=== PATIENT | female | born 2000 | race Caucasian/White ===

== ENCOUNTER → 2018-08-15 | Outpatient (CLI) | payer BC ==
[~2018-08-15] MED LIST: IBUP400 PO
[2018-08-18 07:13] LABS: CHLAMYDIA TRACHOMATIS, NAA Negative (Negative); NEISSERIA GONORRHOEAE, NAA Negative (Negative)
== END | disposition home or self-care (01) ==
LOC: LAB SHORT 19:19 → LAB 19:19
PROVIDERS: Nurse Practitioner Women's Health
DX: Z11.3 Encounter for screening for infections with a predominantly sexual mode of transmission (principal)
CPT/HCPCS: 87491; 87591

== ENCOUNTER 2019-11-12 22:48 | Emergency (ER) | payer OTHER, BC ==
[~2019-11-12] VITALS: Ht 162.6 cm; Wt 68.0 kg
[2019-11-13 00:20] LABS: BASOPHILS ABSOLUTE AUTO 0.07 K/mm3 (0.00-0.23); BASOPHILS PERCENT AUTO 1 % (0-2); EOSINOPHILS ABSOLUTE AUTO 0.05 K/mm3 (0.00-0.68); EOSINOPHILS PERCENT AUTO 1 % (0-6); Hematocrit 43.7 % (33.0-51.0); Hemoglobin 14.6 g/dL (11.5-16.0); IMMATURE GRAN ABSOLUTE AUTO 0.02 K/mm3 (0.00-0.10); IMMATURE GRAN PERCENT AUTO 0 % (0-1); LYMPHOCYTES ABSOLUTE AUTO 2.15 K/mm3 (0.84-5.20); LYMPHOCYTES PERCENT AUTO 31 % (21-46); MONOCYTES ABSOLUTE AUTO 0.64 K/mm3 (0.16-1.47); MONOCYTES PERCENT AUTO 9 % (4-13); Mean Corpuscular HGB 30.5 pg (26.0-34.0); Mean Corpuscular HGB Conc 33.4 g/dL (31.5-36.5); Mean Corpuscular Volume 91 fL (80-100); Mean Platelet Volume 10.3 fL (9.1-12.4); NEUTROPHILS ABSOLUTE AUTO 4.11 K/mm3 (1.96-9.15); NEUTROPHILS PERCENT AUTO 58 % (41-73); Platelet Count 269 K/mm3 (150-400); RDW Coefficient Variation 12.7 % (11.7-14.2); Red Blood Cell Count 4.78 M/mm3 (3.80-5.20); White Blood Cell Count 7.04 K/mm3 (4.00-11.30)
[2019-11-13 00:37] LABS: Alanine Aminotransfer (ALT/SGP 23 U/L (12-78); Albumin, Blood 4.4 g/dL (3.4-5.0); Albumin/Globulin Ratio 1.1 (0.8-1.8); Alk Phos 91 U/L (50-136); Anion Gap 7 mmol/L (6-16); Aspartate Aminotrans (AST/SGOT 21 U/L (12-37); Bilirubin, Total 0.3 mg/dL (0.1-1.0); Blood Urea Nitrogen 7 mg/dL (8-24); Bun/Creatinine Ratio 11.9 (12.0-20.0); CO2, Blood 25 mmol/L (21-32); Chloride, Blood 107 mmol/L (98-108); Creatinine, Blood 0.59 mg/dL (0.40-1.00); Globulin, Blood 3.9 g/dL (2.2-4.0); Glomerular Filtration Rate >60 (60-); Glucose, Blood 89 mg/dL (70-99); Sodium, Blood 139 mmol/L (136-145); Total Protein, Blood 8.3 g/dL (6.4-8.2)
== END 2019-11-13 01:55 | disposition home or self-care (01) ==
LOC: ER 22:48
PROVIDERS: Emergency Medicine
DX: S40.011A Contusion of right shoulder, initial encounter (principal); S20.211A Contusion of right front wall of thorax, initial encounter; F17.210 Nicotine dependence, cigarettes, uncomplicated; V89.2XXA Person injured in unspecified motor-vehicle accident, traffic, initial encounter
CPT/HCPCS: 36415; 70450; 71260; 72125; 74177; 80053; 83690; 84703; 85025; 96361; 96374; 96375; 99284-25; J2405; J3010; J7030; Q9967

== ENCOUNTER → 2020-03-21 | Outpatient (CLI) | payer BC | END | disposition home or self-care (01) | LOC: LAB EV 15:29 → LAB SHORT 15:29 | DX: N39.0 Urinary tract infection, site not specified (principal); Z72.51 High risk heterosexual behavior | CPT/HCPCS: 87077; 87086; 87186 ==

== ENCOUNTER 2022-03-20 17:41 | Observation (INO) | payer BC ==
[~2022-03-20] VITALS: Ht 162.6 cm; Wt 69.9 kg
[2022-03-20 18:50] LABS: BASOPHILS ABSOLUTE AUTO 0.07 K/mm3 (0.00-0.23); BASOPHILS PERCENT AUTO 1 % (0-2); EOSINOPHILS ABSOLUTE AUTO 0.02 K/mm3 (0.00-0.68); EOSINOPHILS PERCENT AUTO 0 % (0-6); Hematocrit 40.4 % (33.0-51.0); IMMATURE GRAN ABSOLUTE AUTO 0.02 K/mm3 (0.00-0.10); IMMATURE GRAN PERCENT AUTO 0 % (0-1); LYMPHOCYTES ABSOLUTE AUTO 1.65 K/mm3 (0.84-5.20); LYMPHOCYTES PERCENT AUTO 24 % (21-46); MONOCYTES ABSOLUTE AUTO 0.63 K/mm3 (0.16-1.47); MONOCYTES PERCENT AUTO 9 % (4-13); Mean Corpuscular HGB 29.5 pg (26.0-34.0); Mean Corpuscular HGB Conc 34.7 g/dL (31.5-36.5); Mean Corpuscular Volume 85 fL (80-100); Mean Platelet Volume 10.3 fL (9.1-12.4); NEUTROPHILS ABSOLUTE AUTO 4.64 K/mm3 (1.96-9.15); NEUTROPHILS PERCENT AUTO 66 % (41-73); Platelet Count 270 K/mm3 (150-400); RDW Standard Deviation 37.1 fL (35.1-46.3); Red Blood Cell Count 4.74 M/mm3 (3.80-5.20); White Blood Cell Count 7.03 K/mm3 (4.00-11.30)
[2022-03-20 19:09] LABS: Ethanol (Alcohol), Blood, Med <3 mg/dL; Salicylate <1.7 mg/dL (2.8-20.0); Thyroxine (T4) 13.2 ug/dL (4.8-13.9)
[2022-03-20 19:13] LABS: Acetaminophen, Random <2.0 ug/mL (10.0-30.0); Alanine Aminotransfer (ALT/SGP 20 U/L (12-78); Albumin, Blood 4.8 g/dL (3.4-5.0); Albumin/Globulin Ratio 1.4 (0.8-1.8); Alk Phos 82 U/L (50-136); Anion Gap 8 mmol/L (6-16); Aspartate Aminotrans (AST/SGOT 15 U/L (12-37); Bilirubin, Total 0.3 mg/dL (0.1-1.0); Blood Urea Nitrogen 8 mg/dL (8-24); Bun/Creatinine Ratio 16.5 (12.0-20.0); CO2, Blood 23 mmol/L (21-32); Calcium, Blood 9.8 mg/dL (8.5-10.1); Chloride, Blood 107 mmol/L (98-108); Creatinine, Blood 0.49 mg/dL (0.40-1.00); Globulin, Blood 3.4 g/dL (2.2-4.0); Glomerular Filtration Rate 136 (60-); Glucose, Blood 117 mg/dL (70-99); Potassium, Blood 3.7 mmol/L (3.5-5.5); Sodium, Blood 138 mmol/L (136-145); Total Protein, Blood 8.2 g/dL (6.4-8.2)
[2022-03-20] MEDS ORDERED: HYDHCL25 PO (21:16)
== END 2022-03-20 21:33 | disposition home or self-care (01) ==
LOC: ER 17:41 → EOR 17:42
PROVIDERS: Physician Assistant; ADMIT Emergency Medicine
DX: F41.9 Anxiety disorder, unspecified (principal); F17.200 Nicotine dependence, unspecified, uncomplicated
CPT/HCPCS: 36415; 80053; 84436; 85025; A9270; G0480

== ENCOUNTER → 2022-06-14 | Outpatient (CLI) | payer BC ==
[~2022-06-14] MED LIST changes: +HYDHCL25 PO
[2022-06-16 01:09] LABS: CHLAMYDIA TRACHOMATIS, NAA Negative (Negative)
== END | disposition home or self-care (01) ==
LOC: LAB SHORT 11:45 → LAB 11:45
PROVIDERS: Family Medicine
DX: Z34.91 Encounter for supervision of normal pregnancy, unspecified, first trimester (principal)
CPT/HCPCS: 87491; 87591

== ENCOUNTER → 2022-07-19 | Outpatient (CLI) | payer BC, OTHER | LOC: LAB SHORT 12:42 | PROVIDERS: Family Medicine | DX: Z34.91 Encounter for supervision of normal pregnancy, unspecified, first trimester (principal) | CPT/HCPCS: G0145 ==

== ENCOUNTER → 2022-08-10 | Outpatient (CLI) | payer BC, OTHER ==
[2022-08-10 12:19] LABS: Source, Urine Voided
[2022-08-10 13:43] LABS: White Blood Cells, Urine 0-2 /hpf (0-5)
[2022-08-10 13:44] LABS: Bacteria Mod /hpf; Red Blood Cells, Urine Not Seen /hpf (0-2); Squamous Epithelial Cells Few /hpf (Few)
== END | disposition home or self-care (01) ==
LOC: LAB SHORT 09:45 → LAB 09:45
PROVIDERS: Family Medicine
DX: R82.998 Other abnormal findings in urine (principal)
CPT/HCPCS: 81015

== ENCOUNTER → 2022-10-04 | Outpatient (CLI) | payer BC, OTHER ==
[2022-10-04 14:19] LABS: BASOPHILS ABSOLUTE AUTO 0.05 K/mm3 (0.00-0.23); BASOPHILS PERCENT AUTO 1 % (0-2); EOSINOPHILS ABSOLUTE AUTO 0.12 K/mm3 (0.00-0.68); EOSINOPHILS PERCENT AUTO 2 % (0-6); Hematocrit 36.3 % (33.0-51.0); Hemoglobin 12.5 g/dL (11.5-16.0); IMMATURE GRAN ABSOLUTE AUTO 0.04 K/mm3 (0.00-0.10); IMMATURE GRAN PERCENT AUTO 1 % (0-1); LYMPHOCYTES ABSOLUTE AUTO 0.94 K/mm3 (0.84-5.20); LYMPHOCYTES PERCENT AUTO 18 % (21-46); MONOCYTES ABSOLUTE AUTO 0.32 K/mm3 (0.16-1.47); MONOCYTES PERCENT AUTO 6 % (4-13); Mean Corpuscular HGB 30.9 pg (26.0-34.0); Mean Corpuscular HGB Conc 34.4 g/dL (31.5-36.5); Mean Corpuscular Volume 90 fL (80-100); Mean Platelet Volume 11.1 fL (9.1-12.4); NEUTROPHILS ABSOLUTE AUTO 3.84 K/mm3 (1.96-9.15); NEUTROPHILS PERCENT AUTO 72 % (41-73); Platelet Count 195 K/mm3 (150-400); RDW Coefficient Variation 12.8 % (11.7-14.2); RDW Standard Deviation 41.9 fL (35.1-46.3); Red Blood Cell Count 4.05 M/mm3 (3.80-5.20); White Blood Cell Count 5.31 K/mm3 (4.00-11.30)
== END | disposition home or self-care (01) ==
LOC: LAB 11:29 → LAB SHORT 11:29
PROVIDERS: Family Medicine
DX: Z34.03 Encounter for supervision of normal first pregnancy, third trimester (principal)
CPT/HCPCS: 82950; 85025

== ENCOUNTER → 2022-11-29 | Outpatient (CLI) | payer BC, OTHER | END | disposition home or self-care (01) | LOC: LAB SHORT 12:32 → LAB 12:32 | DX: Z34.03 Encounter for supervision of normal first pregnancy, third trimester (principal) | CPT/HCPCS: 87081; 87150 ==

== ENCOUNTER 2022-12-30 06:12 | Inpatient (IN) | payer BC, OTHER ==
[2022-12-30] VITALS (32 sets, daily range): BP systolic 109–152; BP diastolic 57–90
[~2022-12-30] VITALS: Ht 162.6 cm; Wt 80.0 kg
[2022-12-30 07:00] LABS: BASOPHILS ABSOLUTE AUTO 0.06 K/mm3 (0.00-0.23); BASOPHILS PERCENT AUTO 1 % (0-2); EOSINOPHILS ABSOLUTE AUTO 0.05 K/mm3 (0.00-0.68); EOSINOPHILS PERCENT AUTO 1 % (0-6); Hematocrit 38.9 % (33.0-51.0); IMMATURE GRAN ABSOLUTE AUTO 0.05 K/mm3 (0.00-0.10); IMMATURE GRAN PERCENT AUTO 1 % (0-1); LYMPHOCYTES ABSOLUTE AUTO 1.23 K/mm3 (0.84-5.20); LYMPHOCYTES PERCENT AUTO 15 % (21-46); MONOCYTES ABSOLUTE AUTO 0.58 K/mm3 (0.16-1.47); MONOCYTES PERCENT AUTO 7 % (4-13); Mean Corpuscular HGB 30.9 pg (26.0-34.0); Mean Corpuscular Volume 86 fL (80-100); Mean Platelet Volume 11.7 fL (9.1-12.4); NEUTROPHILS PERCENT AUTO 76 % (41-73); Platelet Count 168 K/mm3 (150-400); RDW Coefficient Variation 12.3 % (11.7-14.2); RDW Standard Deviation 38.4 fL (35.1-46.3); Red Blood Cell Count 4.53 M/mm3 (3.80-5.20); White Blood Cell Count 8.27 K/mm3 (4.00-11.30)
[2022-12-30] MEDS ORDERED: PRENATAL TABLE1 EAC2 (07:19)
[2022-12-31 00:04] VITALS: BP 110/55
[2022-12-31 04:50] VITALS: BP 103/59
[2022-12-31 05:47] LABS: Hematocrit 32.9 % (33.0-51.0); Hemoglobin 11.7 g/dL (11.5-16.0); Mean Corpuscular HGB 31.2 pg (26.0-34.0); Mean Corpuscular HGB Conc 35.6 g/dL (31.5-36.5); Mean Corpuscular Volume 88 fL (80-100); Mean Platelet Volume 11.5 fL (9.1-12.4); Platelet Count 141 K/mm3 (150-400); RDW Coefficient Variation 12.3 % (11.7-14.2); RDW Standard Deviation 39.7 fL (35.1-46.3); Red Blood Cell Count 3.75 M/mm3 (3.80-5.20); White Blood Cell Count 10.88 K/mm3 (4.00-11.30)
[2022-12-31 10:00] VITALS: BP 127/69
[2022-12-31 15:27] VITALS: BP 166/87
[2022-12-31 15:28] VITALS: BP 148/78
[2022-12-31 19:34] VITALS: BP 116/60
== END 2022-12-31 23:40 | disposition home or self-care (01) | DRG 807 ==
LOC: OBS 06:12 → BC 06:23 → OBS 06:42 → BC 06:44
PROVIDERS: Student in an Organized Health Care Education/Training Program; ADMIT Registered Nurse Community Health
PROC: 00HU33Z Insertion of Infusion Device into Spinal Canal, Percutaneous Approach (ICD-10-PCS; principal; 2022-12-30)
PROC: 3E0R3BZ Introduction of Anesthetic Agent into Spinal Canal, Percutaneous Approach (ICD-10-PCS; 2022-12-30)
PROC: 10E0XZZ Delivery of Products of Conception, External Approach (ICD-10-PCS; 2022-12-31)
PROC: 10907ZC Drainage of Amniotic Fluid, Therapeutic from Products of Conception, Via Natural or Artificial Opening (ICD-10-PCS; 2022-12-31)
PROC: 0HQ9XZZ Repair Perineum Skin, External Approach (ICD-10-PCS; 2022-12-31)
DX: O48.0 Post-term pregnancy (principal); Z37.0 Single live birth; Z67.40 Type O blood, Rh positive; Z3A.40 40 weeks gestation of pregnancy; Z79.899 Other long term (current) drug therapy; O70.0 First degree perineal laceration during delivery
CPT/HCPCS: 36415; 51702; 85025; 85027; 86850; 86900; 86901; A9270; J1885; J2590; J3010; J7120

== ENCOUNTER → 2024-06-26 | Outpatient (CLI) | payer BC, OTHER ==
[~2024-06-26] MED LIST changes: +PRENATAL TABLE1 EAC2
[2024-06-26 19:27] LABS: BASOPHILS ABSOLUTE AUTO 0.04 K/mm3 (0.00-0.23); BASOPHILS PERCENT AUTO 1 % (0-2); EOSINOPHILS ABSOLUTE AUTO 0.13 K/mm3 (0.00-0.68); EOSINOPHILS PERCENT AUTO 2 % (0-6); Hematocrit 36.4 % (33.0-51.0); Hemoglobin 12.9 g/dL (11.5-16.0); IMMATURE GRAN ABSOLUTE AUTO 0.02 K/mm3 (0.00-0.10); IMMATURE GRAN PERCENT AUTO 0 % (0-1); LYMPHOCYTES PERCENT AUTO 21 % (21-46); MONOCYTES ABSOLUTE AUTO 0.39 K/mm3 (0.16-1.47); MONOCYTES PERCENT AUTO 6 % (4-13); Mean Corpuscular HGB 30.8 pg (26.0-34.0); Mean Corpuscular HGB Conc 35.4 g/dL (31.5-36.5); Mean Corpuscular Volume 87 fL (80-100); Mean Platelet Volume 10.5 fL (9.1-12.4); NEUTROPHILS ABSOLUTE AUTO 4.56 K/mm3 (1.96-9.15); NEUTROPHILS PERCENT AUTO 70 % (41-73); Platelet Count 231 K/mm3 (150-400); RDW Coefficient Variation 12.3 % (11.7-14.2); RDW Standard Deviation 39.1 fL (35.1-46.3); Red Blood Cell Count 4.19 M/mm3 (3.80-5.20); White Blood Cell Count 6.54 K/mm3 (4.00-11.30)
[2024-06-29 09:36] LABS: HEPATITIS B SURFACE ANTIGEN Negative (Negative)
[2024-06-29 10:32] LABS: HIV 1,2 COMBO ANTIGEN/ANTIBODY Negative (Negative)
[2024-06-29 11:43] LABS: HEPATITIS C AB CIA INTERP Negative (Negative); HEPATITIS C ANTIBODY CIA INDEX 0.08 IV
== END | disposition home or self-care (01) ==
LOC: LAB SHORT 18:47 → LAB 18:47
PROVIDERS: Registered Nurse Community Health
DX: Z34.91 Encounter for supervision of normal pregnancy, unspecified, first trimester (principal)
CPT/HCPCS: 84443; 86803; 87340; 87389

== ENCOUNTER → 2024-06-28 | Outpatient (CLI) | payer BC, OTHER ==
[2024-06-28 18:43] LABS: Chlamydia Trachomatis Urine NOT DETECTED (NOT DETECT); Neisseria Gonorrhoea Urine NOT DETECTED (NOT DETECT)
== END ==
LOC: LAB 14:01 → LAB SHORT 14:01
PROVIDERS: Registered Nurse Community Health
DX: Z34.92 Encounter for supervision of normal pregnancy, unspecified, second trimester (principal)
CPT/HCPCS: 87086; 87491; 87591

== ENCOUNTER 2024-07-20 10:35 | Emergency (ER) | payer BC, OTHER ==
[~2024-07-20] VITALS: Ht 160 cm; Wt 77.1 kg
[2024-07-20 10:51] VITALS: BP 121/81
[2024-07-20 11:25] LABS: Source, Urine Clean Catch
[2024-07-20 11:28] LABS: Appearance, Urine Turbid (Clear); Bilirubin, Urine Neg (Neg); Blood, Urine 2+ (Neg); Color, Urine Yellow (P-Yellow); Glucose Qualitative, Urine Neg (Neg); Ketones, Urine 4+ (Neg); Leukocyte Esterase, Urine Neg (Neg); Nitrite, Urine Neg (Neg); Protein, Urine 1+ (Neg); Urobilinogen, Urine NORM (Normal)
[2024-07-20 11:43] LABS: Amorphous Mod (0-Heavy); Squamous Epithelial Cells Few /hpf (Few)
[2024-07-20 11:44] LABS: Bacteria Rare /hpf; White Blood Cells, Urine 0-2 /hpf (0-5)
[2024-07-20] MEDS ORDERED: Ondansetron HCl 2 MG / ML 2ML Vial IV ONE (12:10)
[2024-07-20 12:18] LABS: BASOPHILS ABSOLUTE AUTO 0.04 K/mm3 (0.00-0.23); BASOPHILS PERCENT AUTO 1 % (0-2); EOSINOPHILS ABSOLUTE AUTO 0.03 K/mm3 (0.00-0.68); EOSINOPHILS PERCENT AUTO 0 % (0-6); Hematocrit 35.5 % (33.0-51.0); Hemoglobin 12.8 g/dL (11.5-16.0); IMMATURE GRAN ABSOLUTE AUTO 0.06 K/mm3 (0.00-0.10); IMMATURE GRAN PERCENT AUTO 1 % (0-1); LYMPHOCYTES ABSOLUTE AUTO 0.82 K/mm3 (0.84-5.20); LYMPHOCYTES PERCENT AUTO 9 % (21-46); MONOCYTES ABSOLUTE AUTO 0.32 K/mm3 (0.16-1.47); MONOCYTES PERCENT AUTO 4 % (4-13); Mean Corpuscular HGB 31.4 pg (26.0-34.0); Mean Corpuscular HGB Conc 36.1 g/dL (31.5-36.5); Mean Corpuscular Volume 87 fL (80-100); NEUTROPHILS ABSOLUTE AUTO 7.43 K/mm3 (1.96-9.15); NEUTROPHILS PERCENT AUTO 85 % (41-73); Platelet Count 221 K/mm3 (150-400); RDW Coefficient Variation 12.4 % (11.7-14.2); RDW Standard Deviation 39.2 fL (35.1-46.3); Red Blood Cell Count 4.07 M/mm3 (3.80-5.20)
[2024-07-20 14:01] LABS: Albumin, Blood 3.6 g/dL (3.4-5.0); Bilirubin, Total 0.4 mg/dL (0.1-1.0); Bun/Creatinine Ratio 18.4 (12.0-20.0); Calcium, Blood 9.2 mg/dL (8.5-10.1); Creatinine, Blood 0.54 mg/dL (0.40-1.00); Globulin, Blood 3.7 g/dL (2.2-4.0); Potassium, Blood 3.7 mmol/L (3.5-5.5); Total Protein, Blood 7.3 g/dL (6.4-8.2)
== END 2024-07-20 15:35 | disposition home or self-care (01) ==
LOC: ER 10:35
PROVIDERS: Student in an Organized Health Care Education/Training Program
DX: O26.92 Pregnancy related conditions, unspecified, second trimester (principal); R10.84 Generalized abdominal pain; Z3A.23 23 weeks gestation of pregnancy; Z87.891 Personal history of nicotine dependence; Z79.899 Other long term (current) drug therapy
CPT/HCPCS: 76705; 76815; 80053; 81001; 83690; 84702; 85025; 86900; 86901; 96374; 99284-25; J2405

== ENCOUNTER → 2024-08-31 | Outpatient (CLI) | payer BC, OTHER ==
[2024-08-31 16:28] LABS: BASOPHILS ABSOLUTE AUTO 0.04 K/mm3 (0.00-0.23); BASOPHILS PERCENT AUTO 1 % (0-2); EOSINOPHILS ABSOLUTE AUTO 0.15 K/mm3 (0.00-0.68); EOSINOPHILS PERCENT AUTO 3 % (0-6); Hematocrit 36.2 % (33.0-51.0); Hemoglobin 12.4 g/dL (11.5-16.0); IMMATURE GRAN ABSOLUTE AUTO 0.09 K/mm3 (0.00-0.10); IMMATURE GRAN PERCENT AUTO 2 % (0-1); LYMPHOCYTES ABSOLUTE AUTO 1.11 K/mm3 (0.84-5.20); LYMPHOCYTES PERCENT AUTO 20 % (21-46); MONOCYTES ABSOLUTE AUTO 0.35 K/mm3 (0.16-1.47); MONOCYTES PERCENT AUTO 6 % (4-13); Mean Corpuscular HGB 30.5 pg (26.0-34.0); Mean Corpuscular HGB Conc 34.3 g/dL (31.5-36.5); Mean Corpuscular Volume 89 fL (80-100); Mean Platelet Volume 10.4 fL (9.1-12.4); NEUTROPHILS ABSOLUTE AUTO 3.88 K/mm3 (1.96-9.15); NEUTROPHILS PERCENT AUTO 69 % (41-73); Platelet Count 234 K/mm3 (150-400); RDW Coefficient Variation 12.5 % (11.7-14.2); Red Blood Cell Count 4.07 M/mm3 (3.80-5.20); White Blood Cell Count 5.62 K/mm3 (4.00-11.30)
[2024-08-31 18:17] LABS: Albumin, Blood 3.4 g/dL (3.4-5.0); Albumin/Globulin Ratio 0.9 (0.8-1.8); Bilirubin, Total 0.3 mg/dL (0.1-1.0); Bun/Creatinine Ratio 14.7 (12.0-20.0); Calcium, Blood 9.1 mg/dL (8.5-10.1); Creatinine, Blood 0.41 mg/dL (0.40-1.00); Globulin, Blood 3.6 g/dL (2.2-4.0); Potassium, Blood 3.4 mmol/L (3.5-5.5)
== END ==
LOC: LAB SHORT 14:40 → LAB 14:40
PROVIDERS: Registered Nurse Community Health
DX: Z34.83 Encounter for supervision of other normal pregnancy, third trimester (principal); R03.0 Elevated blood-pressure reading, without diagnosis of hypertension
CPT/HCPCS: 80053; 82950; 85025

== ENCOUNTER → 2024-09-03 | Outpatient (CLI) | payer BC, OTHER ==
[2024-09-03 18:47] LABS: Protein, Urine Random <5.0 mg/dL (0.0-11.9); Protein/Creat Ratio, Ur Random Unable to Calculate
== END ==
LOC: LAB 16:29 → LAB SHORT 16:29
PROVIDERS: Registered Nurse Community Health
DX: Z34.93 Encounter for supervision of normal pregnancy, unspecified, third trimester (principal)
CPT/HCPCS: 82570; 84156

== ENCOUNTER → 2024-09-05 | Outpatient (CLI) | payer BC, OTHER ==
[2024-09-05 12:02] LABS: Protein, Urine Quantitative 5.4 mg/dL (0.0-11.9)
[2024-09-05 12:23] LABS: Creatinine, Urine Random 28.4 mg/dL (27.00-270.00); Protein, Urine Random 6.1 mg/dL (0.0-11.9); Protein/Creat Ratio, Ur Random 0.2
== END ==
LOC: LAB 07:00 → LAB SHORT 07:00
PROVIDERS: Registered Nurse Community Health
DX: Z34.93 Encounter for supervision of normal pregnancy, unspecified, third trimester (principal)
CPT/HCPCS: 81050; 82570; 84156

== ENCOUNTER 2024-11-15 07:03 | Inpatient (IN) | payer OTHER ==
[2024-11-15] VITALS (7 sets, daily range): BP systolic 118–136; BP diastolic 59–82
[~2024-11-15] VITALS: Ht 160 cm; Wt 83.1 kg
[2024-11-15] MEDS ORDERED: Carboprost Tromethamine 250 MCG/ML 1ML Amp IM PRN (07:15)
[2024-11-15] MEDS ORDERED: Calcium Carbonate 500 MG Tab Chew PO PRN (07:15)
[2024-11-15] MEDS ORDERED: Ondansetron HCl 2 MG / ML 2ML Vial IV PRN (07:15)
[2024-11-15] MEDS ORDERED: Acetaminophen 500 MG Tab PO PRN (07:15)
[2024-11-15] MEDS ORDERED: ePHEDrine Sulfate 50 MG/ML 1ML Injection XX PRN (07:15)
[2024-11-15] MEDS ORDERED: Methylergonovine Maleate 0.2MG / ML 1ML Amp IM PRN (07:15)
[2024-11-15] MEDS ORDERED: Oxytocin 10 Unit / ML Vial IM PRN (07:15)
[2024-11-15] MEDS ORDERED: Misoprostol 200 MCG Tab PR PRN (07:15)
[2024-11-15] MEDS ORDERED: OXYTOCIN/RINGER'S LACTATE 500 ML IV PRN (07:15)
[2024-11-15] MEDS ORDERED: Lactated Ringer's 1,000 ML IV PRN (07:15)
[2024-11-15] MEDS ORDERED: Lactated Ringer's 1,000 ML IV SCH ×2 (07:15)
[2024-11-15] MEDS ORDERED: FentaNYL 2mcg/ml-Bup 0.1% Epd 250 ML EPI PRN (07:15)
[2024-11-15] MEDS ORDERED: Tranexamic Acid 100 ML IV SCH (07:15)
[2024-11-15] MEDS ORDERED: Misoprostol 200 MCG Tab BC PRN (07:15)
[2024-11-15] MEDS ORDERED: OXYTOCIN/RINGER'S LACTATE 500 ML IV SCH (07:20)
[2024-11-15] MEDS ORDERED: THERA-D2000 UNIT PO (07:53)
[2024-11-15 08:12] LABS: BASOPHILS ABSOLUTE AUTO 0.04 K/mm3 (0.00-0.23); BASOPHILS PERCENT AUTO 1 % (0-2); EOSINOPHILS ABSOLUTE AUTO 0.11 K/mm3 (0.00-0.68); EOSINOPHILS PERCENT AUTO 2 % (0-6); Hematocrit 35.1 % (33.0-51.0); Hemoglobin 12.5 g/dL (11.5-16.0); IMMATURE GRAN ABSOLUTE AUTO 0.04 K/mm3 (0.00-0.10); IMMATURE GRAN PERCENT AUTO 1 % (0-1); LYMPHOCYTES ABSOLUTE AUTO 1.56 K/mm3 (0.84-5.20); LYMPHOCYTES PERCENT AUTO 24 % (21-46); MONOCYTES ABSOLUTE AUTO 0.52 K/mm3 (0.16-1.47); MONOCYTES PERCENT AUTO 8 % (4-13); Mean Corpuscular HGB 30.8 pg (26.0-34.0); Mean Corpuscular HGB Conc 35.6 g/dL (31.5-36.5); Mean Corpuscular Volume 87 fL (80-100); Mean Platelet Volume 10.7 fL (9.1-12.4); NEUTROPHILS PERCENT AUTO 65 % (41-73); Platelet Count 190 K/mm3 (150-400); RDW Coefficient Variation 12.6 % (11.7-14.2); RDW Standard Deviation 39.6 fL (35.1-46.3); Red Blood Cell Count 4.06 M/mm3 (3.80-5.20); White Blood Cell Count 6.47 K/mm3 (4.00-11.30)
[2024-11-15] MEDS ORDERED: FentaNYL Citrate 50 MCG/ML 2 ML Injection IV PRN (08:45)
[2024-11-16] VITALS (34 sets, daily range): BP systolic 104–147; BP diastolic 54–86
[2024-11-16] MEDS ORDERED: ePHEDrine Sulfate 50 MG/ML 1ML Injection IV PRN (12:45)
[2024-11-16] MEDS ORDERED: Metoclopramide HCl 5MG / ML 2ML Vial IV PRN (12:45)
[2024-11-16] MEDS ORDERED: Naloxone HCl 0.4MG / ML 1ML Vial IV PRN (12:45)
[2024-11-16] MEDS ORDERED: DiphenhydrAMINE HCl 50 MG/ML 1ML Vial IV PRN (12:45)
[2024-11-16] MEDS ORDERED: Ondansetron HCl 2 MG / ML 2ML Vial IV PRN (12:45)
[2024-11-16] MEDS ORDERED: Ibuprofen 400 MG Tab PO PRN (16:55)
[2024-11-16] MEDS ORDERED: Benzocaine Topical Anesthetic Spray 60GM TOP PRN (16:55)
[2024-11-16] MEDS ORDERED: Acetaminophen 500 MG Tab PO PRN (16:55)
[2024-11-16] MEDS ORDERED: Docusate Sodium 100 MG Cap PO PRN (16:55)
[2024-11-16] MEDS ORDERED: Lactated Ringer's 1,000 ML IV SCH (16:55)
[2024-11-16] MEDS ORDERED: Witch Hazel/Glycerin PADS TOP PRN ×2 (16:55→19:00)
[2024-11-16] MEDS ORDERED: Ketorolac Tromethamine 30mg Vial IV PRN (17:00)
[2024-11-17 00:34] VITALS: BP 117/68
[2024-11-17 04:55] VITALS: BP 92/49
[2024-11-17 04:57] VITALS: BP 105/56
[2024-11-17 07:14] LABS: BASOPHILS ABSOLUTE AUTO 0.05 K/mm3 (0.00-0.23); BASOPHILS PERCENT AUTO 1 % (0-2); EOSINOPHILS ABSOLUTE AUTO 0.13 K/mm3 (0.00-0.68); EOSINOPHILS PERCENT AUTO 1 % (0-6); Hematocrit 33.4 % (33.0-51.0); Hemoglobin 11.4 g/dL (11.5-16.0); IMMATURE GRAN ABSOLUTE AUTO 0.04 K/mm3 (0.00-0.10); IMMATURE GRAN PERCENT AUTO 0 % (0-1); LYMPHOCYTES ABSOLUTE AUTO 1.77 K/mm3 (0.84-5.20); LYMPHOCYTES PERCENT AUTO 19 % (21-46); MONOCYTES ABSOLUTE AUTO 0.69 K/mm3 (0.16-1.47); MONOCYTES PERCENT AUTO 7 % (4-13); Mean Corpuscular HGB 29.7 pg (26.0-34.0); Mean Corpuscular HGB Conc 34.1 g/dL (31.5-36.5); Mean Corpuscular Volume 87 fL (80-100); Mean Platelet Volume 10.7 fL (9.1-12.4); NEUTROPHILS ABSOLUTE AUTO 6.75 K/mm3 (1.96-9.15); NEUTROPHILS PERCENT AUTO 72 % (41-73); Platelet Count 180 K/mm3 (150-400); RDW Coefficient Variation 12.9 % (11.7-14.2); RDW Standard Deviation 40.3 fL (35.1-46.3); Red Blood Cell Count 3.84 M/mm3 (3.80-5.20); White Blood Cell Count 9.43 K/mm3 (4.00-11.30)
[2024-11-17 07:33] VITALS: BP 102/54
[2024-11-17] MEDS ORDERED: Prenatal Vit/FE Fumarate/FA 1 Tab PO SCH (09:00)
[2024-11-17 11:12] VITALS: BP 117/62
[2024-11-17 18:23] VITALS: BP 119/61
== END 2024-11-17 18:43 | disposition home or self-care (01) | DRG 807 ==
LOC: OBS 07:03 → BC 07:05 → OBS 07:19 → BC 07:20
PROVIDERS: ADMIT Family Medicine
PROC: 3E033VJ Introduction of Other Hormone into Peripheral Vein, Percutaneous Approach (ICD-10-PCS; 2024-11-15)
PROC: 4A1HXCZ Monitoring of Products of Conception, Cardiac Rate, External Approach (ICD-10-PCS; 2024-11-15)
PROC: 10E0XZZ Delivery of Products of Conception, External Approach (ICD-10-PCS; principal; 2024-11-16)
PROC: 10907ZC Drainage of Amniotic Fluid, Therapeutic from Products of Conception, Via Natural or Artificial Opening (ICD-10-PCS; 2024-11-16)
DX: O48.0 Post-term pregnancy (principal); Z37.0 Single live birth; Z3A.40 40 weeks gestation of pregnancy; O99.214 Obesity complicating childbirth
CPT/HCPCS: 36415; 51702; 85025; 86850; 86900; 86901; A9270; J1885; J2405; J2590; J7120